=== PATIENT | female | born 1985 | race African-American/Black ===

== ENCOUNTER 2019-04-26 18:12 | Emergency (ER) | payer OTHER ==
[~2019-04-26] VITALS: Ht 177.8 cm; Wt 65.8 kg
[2019-04-26] MEDS ORDERED: IBUPROFEN 800800 M1 PO (19:43)
[2019-04-26] MEDS ORDERED: NORCO 5-325 TA1 EAC1 PO (19:43)
[2019-04-26] MEDS ORDERED: AMOXICILLIN 50500 MG PO (19:43)
[2019-04-26 20:04] VITALS: BP 125/78
== END 2019-04-26 20:05 | disposition home or self-care (01) ==
LOC: ER 18:12
DX: J03.90 Acute tonsillitis, unspecified (principal); Z88.5 Allergy status to narcotic agent